=== PATIENT | female | born 1995 | race Caucasian/White ===

== ENCOUNTER 2022-03-23 14:18 | Inpatient (IN) | payer OTHER, SELFPAY ==
[2022-03-23] VITALS (16 sets, daily range): BP systolic 102–134; BP diastolic 59–85; PULSE 85–120; RESP 14–17; TEMP 35.9–36.8; O2SAT 95–99; BMI 35.1
[2022-03-23] MEDS: Lactated Ringers 1,000 ML 999 ML IV (14:30)
[2022-03-23] MEDS: Acetaminophen 500 MG Tablet 1000 MG PO ×2 (14:41→21:03)
[2022-03-23 14:46] LABS: Absolute Lymphocyte Count 1.48 X10^3/uL (0.83-4.51); Basophil# 0.04 X10^3/uL; Basophil% 0.2 % (0-1); Eosinophil# 0.02 X10^3/uL; Eosinophils% 0.1 % (0-5); Hematocrit 38.5 % (37-47); Hemoglobin 12.6 g/dL (12.0-15.0); Lymphocyte # 1.48 X10^3/ul (0.83-4.51); Lymphocyte % 7.1 % (19-41); Mean Corp Hgb Conc 32.7 g/dL (32-36); Mean Corpuscular Hgb 27.6 pg (27.0-32.0); Mean Corpuscular Volume 84.2 fL (81-99); Mean Platelet Vol. 12.2 fl (6.2-12.0); Monocyte# 1.05 X10^3/uL; Monocyte% 5.1 % (0-10); NRBC Flagged by Analyzer 0 % (0-5); Neutrophil # 18.03 X10^3/uL (2.7-7.7); Neutrophil % 86.9 % (47-70); Platelet Count 236 K/mm3 (150-450); RBC Distribution Width SD 42.9 fl (35.1-43.9); Red Blood Count 4.57 M/mm3 (4.2-5.4); White Blood Count 20.7 K/mm3 (4.4-11.0)
[2022-03-23] MEDS: Cefazolin 2 GM in 0.9% Normal Saline 100 ML IV (15:22)
--- NOTE | 2022-03-23 16:31 | HP.PCM.OB_ITS ---
HPI - General General Date of Admission: 03/23/22 HPI Narrative SILVIA MCDONALD, is a 26 F who presents at 38 3/7 weeks gestation by stated DUARTE. She was sent in by her home lockstitch binder due to labor with concern for breech presentation. She broke her water 03/22/22. PFSH PFSH Home Medications lactobacillus combination no.4 [Probiotic] 3,000 mmu cells PO DAILY 03/23/22 [History Last Taken Unknown] [id number] [] tab PO 03/23/22 [History Last Taken 03/23/22] Allergy/AdvReac Type Severity Reaction Status Date / Time No Known Allergies Allergy Verified 03/23/22 14:05 Surgical History (Updated 03/23/22 @ 16:[address] Christy Navarro MD) No history of previous surgery Social History Smoking Status: Never smoker History 1 Elective abortions Hx Para 0 Spontaneous abortions Hx # Term Pregnancies Ectopic pregnancies Hx # Pregnancies Multiple births # of living children NST FHR Rate Baby A Baseline: 135 Variability:: Minimal Accelerations:: 15 x 15 Decelerations:: None NST Reactive:: Yes FHR Category:: Category I Uterine Activity:: 2-12/21 Vital Signs Vital Signs Vital Signs: 03/23/22 13:49 03/23/22 13:50 03/23/22 14:05 Temperature 96.7 F L Temperature Source Tympanic Pulse Rate 107 H 97 Blood Pressure 134/80 H BP Systolic 134 BP Diastolic 80 Pulse Ox 98 98 Weight Weight: 104.7 kg Body Mass Index (BMI) 35.1 Physical Exam Const alert, oriented x3 and no apparent distress HEENT normocephalic Resp normal respiratory effort, normal air movement and clear to auscultation bilaterally Cardio regular rate and regular rhythm GI normal to inspection, nondistended, normoactive bowel sounds, soft to palpation, non-tender and non-distended Inspection: gravid Labs Labs Labs: Blood Type O POSITIVE Antibody Screen NEGATIVE Hct 38.5 % (37-47) Hgb 12.6 g/dL (12.0-15.0) Syphilis Total Ab Pending Rubella IgG Antibody Pending Hep Bs Antigen Pending HIV 1&2 Antibody Pending Assessment & Plan (1) 38 weeks gestation of : PLAN: labs T&S NPO (2) Breech presentation: QUALIFIERS: Fetus number: single or unspecified fetus Qualified Code(s): O32.1XX0 - Maternal care for breech presentation, not applicable or unspecified PLAN: US confirms mendy breech presentation Advised delivery with discussion of indications, risks, benefits, alternatives. Patient agreeable to proceed.
--- NOTE | 2022-03-23 16:37 | OP.PCM_ITS ---
Assessment & Plan (1) Breech presentation: QUALIFIERS: Fetus number: single or unspecified fetus Qualified Code(s): O32.1XX0 - Maternal care for breech presentation, not applicable or unspecified (2) 38 weeks gestation of : Details Operative Information Date of Procedure: 03/23/22 Pre-Operative Diagnosis: 1. 38 3/7 weeks gestation 2. SROM 3. breech presentation Post-Operative Diagnosis: 1. 38 3/7 weeks gestation 2. SROM 3. breech presentation Indications for : Breech Indications Narrative: 26-year-old 1 para 0 at 38-3/7 weeks gestational age with stated DUARTE was brought in by her home siding stapler following 24 hours of labor with SROM and concern for breech presentation. Ultrasound confirmed mendy breech presentation. Patient was advised to proceed with section with discussion of procedural risks, benefits, indications and alternatives. Patient desired to proceed. Informed consent was obtained prior to the procedure. Classification: WOOD Procedure Type: low transverse motor and generator assembler #1: Francy Quiñonez Type of Anesthesia: Spinal Anesthesiologist: Omer Oconnor Antibiotic Given: Ancef 2 grams IV x1 Drain: [place] to straight drain Estimated Blood Loss: 800 ml Fluids Replaced: 1400 ml Findings Description of Procedure: The patient was taken to the operating room and spinal analgesia was administered. She is placed in a dorsal supine position with left lateral tilt. The perineum and abdomen were prepped and draped in sterile fashion. And the spinal was found to be adequate. A Pfannenstiel incision was made using a scalpel and brought down to incise the subcutaneous tissue and rectus fascia at the midline. Subcutaneous tissue was bluntly dissected off the fascia laterally. The fascial incision was dissected laterally and cephalad using curved Flores scissors. The superior leaflet of the rectus fascia was grasped using Karen clamps and bluntly dissected and sharply dissected from the underlying rectus muscle. In a similar fashion the inferior rectus fascia was dissected from the underlying muscle. The rectus muscles were bluntly at the midline. The peritoneum was identified and entered [sharply]. The bladder blade was placed into the abdomen and the vesicouterine peritoneal fold identified. The fold was incised and a bladder flap created. Bladder blade was then repositioned to the abdomen. A low transverse hysterotomy was made using the [Metzenbaum scissors] to level of the membranes. The hysterotomy was extended bluntly cephalad and caudad. The membranes were then ruptured revealing clear fluid. The breech was elevated and delivered through the hysterotomy. The infant was delivered following gentle bidirectional rotation to the shoulders with spontaneous delivery of the upper extremities bilaterally and the head. The delivered revealing vigorous [male] infant. The cord was doubly clamped and cut after 60 seconds. The infant was passed to awaiting [nursery personnel]. The placenta was [expressed] from the uterus and appeared intact on inspection. The uterus was cleared of debris. The hysterotomy was then repaired using 0 Vicryl running lock suture. A second imbricating layer was done and Evelyn also placed for additional hemostasis. The bladder blade was removed. The anterior cul-de-sac was cleared of debris. The peritoneum was reapproximated using 2-0 Vicryl running suture. The rectus fascia was closed using 0 strata fix.The subcutaneous tissue was reapproximated using 2-0 Vicryl. The skin was closed using 4-0 Monocryl subcuticularly. A Mepilex occlusive dressing was placed over the incision. The fundus was firm. The patient was then transferred to the recovery room without complication. Sponge, instrument, and needle counts were correct ?2. Presentation: Positive for Vertex Time of Membrane Ruptured: 03/22/22 at 0030h Amniotic Fluid Description: Clear Placenta Disposition: [facility] Cord Vessel Description: 3 Vessels Cord Entanglement: None A Gender: Male (1 minute): 8 (5 minute): 9 Delayed Cord Clamping: Yes Complications Risks of Surgery Discussed w/Patient: Bleeding, Anesthesia Risks, Infection and Injury to surrounding structure(s) including bowel and bladder
[2022-03-23] MEDS: Oxytocin 30 units/NS 500 ml 30 UNITS/500 ML IV.SOLN 167 UNITS IV (16:50)
[2022-03-23] MEDS: Ketorolac 30 MG/ML Syringe IV ×2 (17:30→23:04)
[2022-03-23] MEDS: Lactated Ringers 1,000 ML 100 ML IV (20:40)
[2022-03-24 01:33] LABS: HIV - WCH Non-Reactive (Nonreactive); Hepatitis B Surface Antigen Non-Reactive (Nonreactive); Hepatitis C Antibody Non-Reactive (Nonreactive)
[2022-03-24 03:37] VITALS: BP 104/62; PULSE 100; RESP 14; TEMP 36.8
[2022-03-24] MEDS: Acetaminophen 500 MG Tablet 1000 MG PO ×4 (04:16→22:12)
[2022-03-24 04:51] LABS: Hematocrit 33.3 % (37-47); Hemoglobin 10.7 g/dL (12.0-15.0); Mean Corp Hgb Conc 32.1 g/dL (32-36); Mean Corpuscular Hgb 27.5 pg (27.0-32.0); Mean Corpuscular Volume 85.6 fL (81-99); Mean Platelet Vol. 11.8 fl (6.2-12.0); Platelet Count 188 K/mm3 (150-450); RBC Distribution Width CV 14.5 % (11.6-14.6); Red Blood Count 3.89 M/mm3 (4.2-5.4); White Blood Count 19.5 K/mm3 (4.4-11.0)
[2022-03-24] MEDS: Ketorolac 30 MG/ML Syringe IV ×2 (05:14→11:28)
--- NOTE | 2022-03-24 06:46 | PN.OBGYN_ITS ---
Subjective Subjective Patient is sore today. She has been out of bed. Not yet voided. Passing flatus. Tolerates PO. No nausea or vomiting. Denies heavy lochia. She is , working on latch. Objective Data Objective Data Vital Signs: Vital Signs Temp Pulse Resp BP Pulse Ox 98.2 F 100 14 104/62 95 03/24/22 03:37 03/24/22 03:37 03/24/22 03:37 03/24/22 03:37 03/23/22 23:07 Oxygen Delivery Method Room Air Weight: 104.7 kg Body Mass Index (BMI) 35.1 Intake & Output: Intake and Output for Last 24 Hours 03/22/22 03/23/22 03/24/22 23:59 23:59 23:59 Intake Total 1831 / 1831 Output Total 650 / 650 650 / 650 Balance 1181 / 1181 -650 / -650 Lab / Micro Data Result Diagrams: 03/24/22 04:00 Labs: Laboratory Results - last 24 hr 03/23/22 14:30: WBC 20.7 H, RBC 4.57, Hgb 12.6, Hct 38.5, MCV 84.2, MCH 27.6, MCHC 32.7, RDW Std Deviation 42.9, RDW Coeff of Maged 14.0, Plt Count 236, MPV 12.2 H, Immature Gran % (Auto) 0.600, Neut % (Auto) 86.9 H, Lymph % (Auto) 7.1 L , [place] % (Auto) 5.1, Eos % (Auto) 0.1, Baso % (Auto) 0.2, Absolute Neuts (auto) 18.0 H, Absolute Lymphs (auto) 1.48, Nucleated RBC % 0 03/23/22 14:30: Blood Type O POSITIVE, Antibody Screen NEGATIVE 03/23/22 14:30: Hep Bs Antigen Non-Reactive, Hepatitis C Antibody Non-Reactive, HIV 1&2 Antibody Non-Reactive 03/24/22 04:00: WBC 19.5 H, RBC 3.89 L, Hgb 10.7 L, Hct 33.3 L, MCV 85.6, MCH 27.5, MCHC 32.1, RDW Std Deviation 44.0 H, RDW Coeff of Maged 14.5, Plt Count 188, MPV 11.8 Micro: Microbiology 03/23/22 14:45 Nasal Secretion SARS-CoV-2 Antigen (Rapid) - Final Physical Exam Const alert, oriented x3 and no apparent distress Resp normal respiratory effort, normal air movement and clear to auscultation bilaterally Cardio regular rate, regular rhythm, S1 normal heart sound and S2 normal heart sound GI normal to inspection, nondistended, normoactive bowel sounds, soft to palpation, non-tender and non-distended GI Narrative: incisional dressing c/d/i Manual OB Exam: other lochia scant Uterus Palpation: uterus fundus firm Extremity no calf tenderness Assessment & Plan (1) Breech presentation: QUALIFIERS: Fetus number: single or unspecified fetus Qualified Code(s): O32.1XX0 - Maternal care for breech presentation, not applicable or unspecified (2) 38 weeks gestation of : (3) delivery delivered: PLAN: Rh negative HBsAG neg, HCV Ab neg, HIV neg Rubella, RPR, GC/CT pending - consult Routine postop care
[2022-03-24 07:50] VITALS: BP 106/60; PULSE 87; RESP 16; TEMP 37.1; O2SAT 97
[2022-03-24] MEDS: Senna/Docusate Sodium 1 Tablet PO (09:25)
--- NOTE | 2022-03-24 11:24 | CASEMGMT ---
Social Work Assessment Labor and Delivery Unit Date/Time of referral: 03/24/22, 9:30am Referred by: Dr. Christy Ricardo Date/Time of Intervention: 03/24/22, 11:00am Reason for Referral: SW notification PHQ-9 trigger(scored a 6). MOB answered several days to trouble falling or staying asleep or sleeping too much, feeling tired or having little energy, and porr appetite or overeating. Pt scored 0 on all other questions. History obtained from: MOB and FOB Household composition: MOB, FOB, and now baby Shaq Parents' guardian status: MOB and FOB are guardians of the baby Medical History: MOB: Baby breech. care through [facility] [place] [place] Baby: Born 03/23/22 15:36, Apgars 8 and 9 at 1 and 5 minutes. 3.27kg at . Baby breech. Educational Status: They completed to 8th grade Financial Status: No concerns, FOB works multimedia assistant in [employer]. MOB plans to stay home w/the baby. supplies: They have all needed supplies including crib, car seat, clothing, diapers. They can get bottles if needed, MOB plans to breast feed. Childcare/Caregivers: family on both sides Transportation: They have 2 vehicles Programs/Agencies involved: none Children's Services/Legal Issues: None Behavioral Health Issues: Substance abuse: No history as per MOB or FOB for either. No tox screen completed on MOB or baby while here. Mental Health: FOB reports no history. MOB also reports no history. We spoke about the score on the PHQ-9. MOB attributes all the symptoms to the last week of and being uncomfortable, having trouble sleeping. She states she isn't anxious, wasn't worried about giving , she just had trouble sleeping. Family/Social Stressors: None Support Systems: Both MOB and FOB's families are supportive. MOB's mother and sisters are supportive, FOB's parents and siblings are also supportive. depression and Anxiety/Shaken Baby/Safe Sleeping/Mental Health resources/New Mom Hotline/Help Me Grow/[facility] Resources: SW gave information on all of these topics and reviewed it. SW reviewed in particular the warning signs of depression. SW encouraged MOB to speak w/her physician should she have symptoms, and also look into counseling. SW gave list of counseling agencies and pointed out [facility] hotline, as well as the New Mom Hotline. Assessment: MOB and FOB answered all questions appropriately. Plan: Baby home w/MOB and FOB at discharge. No further social and human services assistant needs identified at this time. LIGIA Enrique
[2022-03-24] MEDS: 0.9% Saline Lock 10 ML Syringe IV (11:29)
[2022-03-24 12:10] VITALS: BP 104/56; PULSE 86; RESP 16; TEMP 37.1; O2SAT 97
[2022-03-24 13:29] LABS: Chlamydia Trachomatis by PCR Negative (Negative); Neisserai gonorrhoeae by PCR Negative (Negative); Probe Check PASS; Sample Adequacy Control PASS; Specimen Processing Control PASS
[2022-03-24 16:51] VITALS: BP 128/72; PULSE 100; RESP 16; TEMP 37.5; O2SAT 97
[2022-03-24] MEDS: Ibuprofen 600 MG Tablet PO ×2 (17:33→22:56)
[2022-03-24 17:35] VITALS: TEMP 37.6
--- NOTE | 2022-03-24 19:15 | NURSING ---
This RN received notice at report that the pt had been up and moving around in room ad shelby.
[2022-03-24 20:40] VITALS: BP 116/78; PULSE 102; RESP 18; TEMP 36.4; O2SAT 98
[2022-03-25 02:44] VITALS: BP 104/70; PULSE 80; RESP 16; TEMP 36.1; O2SAT 97
[2022-03-25] MEDS: Acetaminophen 500 MG Tablet 1000 MG PO ×2 (04:18→09:07)
[2022-03-25] MEDS: Ibuprofen 600 MG Tablet PO ×2 (05:00→11:12)
--- NOTE | 2022-03-25 05:16 | NURSING ---
0510- This RN received report from Dallas Rothman RN and will be assuming care at this time.
[2022-03-25 08:34] VITALS: BP 112/78; PULSE 88; RESP 20; TEMP 36.8; O2SAT 98
[2022-03-25] MEDS: Senna/Docusate Sodium 1 Tablet PO (09:07)
--- NOTE | 2022-03-25 09:56 | PCM.DC.SUM ---
Providers Date of Admission: 03/23/22 Primary Care Physician: No Primary Care Phys Reason For Visit: PRIMARY Diagnosis Discharge Diagnosis (1) Breech presentation: Status: Acute Code(s): O32.1XX0 - Maternal care for breech presentation, not applicable or unspecified Qualifiers: Fetus number: single or unspecified fetus Qualified Code(s): O32.1XX0 - Maternal care for breech presentation, not applicable or unspecified (2) 38 weeks gestation of : Status: Acute Code(s): Z3A.38 - 38 weeks gestation of (3) delivery delivered: Status: Acute Code(s): O82 - Encounter for delivery without indication Medications at Discharge Home Medications Probiotic 3,000 mmu cells PO DAILY 03/23/22 [id number] tab PO 03/23/22 ibuprofen 600 mg PO Q8H PRN PRN #30 tab 03/25/22 Hospital Course Operations section Procedures None Summary of Care Provided Hospital Course: 26yo G1 was admitted in labor with breech presentation at 38 3/7 weeks gestation. She underwent low transverse section. The procedure was uncomplicated and her postoperative course unremarkable. She was out of bed, ambulating, tolerated food and voiding without difficulty and passing flatus. She was discharged to home on post op day #2. Physical Exam Const alert, oriented x3 and no apparent distress General Appearance: cooperative and comfortable HEENT normocephalic Resp normal respiratory effort and clear to auscultation bilaterally Auscultation: clear to auscultation bilaterally Cardio regular rate, regular rhythm, S1 normal heart sound and S2 normal heart sound GI normal to inspection, nondistended, normoactive bowel sounds, soft to palpation and non-tender GI Narrative: incisional dressing c/d/i Uterus Palpation: other OB Fundus firm and nontender Extremity no calf tenderness Extremity Narrative: +1 b/l LE pedal and ankle edema Weight / BMI Weight Weight: 104.7 kg Body Mass Index (BMI) 35.1 ABG / Lab / Microbiology Data Result Diagrams: 03/24/22 04:00 Laboratory: Laboratory Results - last 24 hr 03/24/22 11:20: Chlam trachomat DNA PCR Negative, N.gonorrhoeae DNA (PCR) Negative Microbiology: Microbiology 03/23/22 14:45 Nasal Secretion SARS-CoV-2 Antigen (Rapid) - Final D/C Instructions Discharge Diet: No restrictions Discharge Activity: Return to Normal Activity and May Shower May resume sexual activity in: 4-6 weeks Lifting Restrictions: 10 lb Call your doctor if you observe: Fever of 101 or Higher, Inability to urinate, Inability to have a bowel movement, Using more than 1 pad per hour, Shortness of breath, Chest pain, Calf discomfort, Uncontrolled pain and - (Persistent or severe headache) Suture Line Care: Avoid Pulling/Pushing Remove Dressing in: 4 days Cleanse incision/area with: Soap & Water Please Follow Up With: Christy Alexis MD When: 1-2 weeks for incision check Meaningful Use Info Meaningful Use Diagnoses (Choose all that apply): None applicable Discharge Plan Admission Admit Date/Time: 03/23/22 14:18 Primary Reason for Your Visit: delivery Attending Provider: Christy Alexis Primary Care Provider: Care Physician,No Primary Discharge Orders/Prescriptions Prescriptions: New ibuprofen 600 mg Tablet 600 mg PO Q8H PRN PRN (Reason: pain) Qty: 30 RF: 0 Continued [id number]-FA 1 mg Tablet PO RF: 0 Probiotic 3 billion cell Capsule 3,000 mmu cells PO DAILY RF: 0 Referrals / Follow Up: Care Physician,No Primary [Primary Care Provider] - Disposition Disposition (needs filled in before D/C Order can be placed): Home, Self Care
--- NOTE | 2022-03-25 10:00 | PCM.DC ---
Discharge Instructions Diet Discharge Diet: No restrictions Activity Discharge Activity: Return to Normal Activity May resume sexual activity in: 4-6 weeks Dressing / Incision Call your doctor if you observe: Fever of 101 or Higher, Inability to urinate, Inability to have a bowel movement, Using more than 1 pad per hour, Shortness of breath, Chest pain, Calf discomfort, Uncontrolled pain and - (Persistent or severe headache) Suture Line Care: Avoid Pulling/Pushing Cleanse incision/area with: Soap & Water Follow Up Care Please Follow Up With: Christy Alexis MD When: 1-2 weeks for postop visit Test Results: Test results from this visit will be discussed in further detail at your follow-up appointment, if applicable. Discharge Plan Admission Admit Date/Time: 03/23/22 14:18 Primary Reason for Your Visit: delivery Attending Provider: Christy Alexis Primary Care Provider: Care Physician,No Primary Discharge Orders/Prescriptions Prescriptions: New ibuprofen 600 mg Tablet 600 mg PO Q8H PRN PRN (Reason: pain) Qty: 30 RF: 0 Continued [id number]-FA 1 mg Tablet PO RF: 0 Probiotic 3 billion cell Capsule 3,000 mmu cells PO DAILY RF: 0 Referrals / Follow Up: Care Physician,No Primary [Primary Care Provider] - Disposition Disposition (needs filled in before D/C Order can be placed): Home, Self Care
[2022-03-25 12:24] VITALS: BP 118/87; PULSE 100; PULSE 117; RESP 20; TEMP 36.1
--- NOTE | 2022-03-25 12:25 | NURSING ---
1224- mom had just got out of the shower and hr initially was 117
[2022-03-26 08:51] LABS: Rubella IgG Non-Reactive (Nonreactive); Syphilis Antibodies Non-reactive
== END 2022-03-25 12:47 | disposition home or self-care (01) | DRG 788 ==
LOC: WPOUT 14:19 → WP 14:19
PROVIDERS: Admitting Provider Obstetrics & Gynecology; Referring Provider Obstetrics & Gynecology; Visit Provider Obstetrics & Gynecology
DX: O32.1XX0 Maternal care for breech presentation, not applicable or unspecified (principal); Z37.0 Single live birth; Z3A.38 38 weeks gestation of pregnancy
CPT/HCPCS: 59025; 59050; 85025; 85027; 86703; 86762; 86780; 86803; 86850; 86900; 86901; 87340; 87426; 87491; 87591; 99218; 99251; J7120; A4216; G0378; G0463; J2405